=== PATIENT | female | born 1955 | race Two or more races ===

== ENCOUNTER 2019-03-19 00:01 | Emergency (ER) | payer OTHER ==
[~2019-03-19] VITALS: Ht 175.3 cm; Wt 103.9 kg
[2019-03-19] MEDS ORDERED: LOSARTAN POTASS25 MG (00:11)
[2019-03-19] MEDS ORDERED: SYNTHROID112 MCG (00:11)
[2019-03-19] MEDS ORDERED: LANTUS SOL100 UNIT/1 (00:12)
[2019-03-19] MEDS ORDERED: HUMALOG100 UNIT/1 (00:12)
== END 2019-03-19 05:53 | disposition home or self-care (01) ==
LOC: ER 00:01
DX: E13.649 Other specified diabetes mellitus with hypoglycemia without coma (principal)